=== PATIENT | female | born 1935 | race American Indian/Alaskan Native ===

== ENCOUNTER 2021-08-11 18:25 | Emergency (ER) | payer OTHER ==
[~2021-08-11] VITALS: Ht 152.4 cm; Wt 43.5 kg
[2021-08-11 19:14] LABS: PLATELET COUNT 199 K/uL (152-353)
[2021-08-11 19:27] LABS: POTASSIUM 3.7 mmol/L (3.6-5.2)
[2021-08-11 20:28] VITALS: BP 152/63; TEMP 98
[2021-08-12] MEDS ORDERED: ALENDRONATE35 MG PO (11:42)
[2021-08-12] MEDS ORDERED: AMLODIPINE BESYLATE PO (11:43)
[2021-08-12] MEDS ORDERED: CALCIUM600 M1 PO (11:44)
[2021-08-12] MEDS ORDERED: BISACODYL5 M1 PO (11:44)
[2021-08-12] MEDS ORDERED: CARV3.12 PO (11:45)
[2021-08-12] MEDS ORDERED: DOK100 MG PO (11:46)
[2021-08-12] MEDS ORDERED: FERREX 150150 MG PO (11:48)
[2021-08-12] MEDS ORDERED: EUTHYROX25 MCG PO (11:49)
[2021-08-12] MEDS ORDERED: PANTOPRAZOLE 40MG TA PO (11:50)
[2021-08-12] MEDS ORDERED: ALPR0.2566 PO (11:51)
[2021-08-12] MEDS ORDERED: FEXOFENADINE H180 M1 PO (11:52)
[2021-08-12] MEDS ORDERED: FURO40TA93 PO (11:53)
[2021-08-12] MEDS ORDERED: HYDR25CA25 PO (11:54)
[2021-08-12] MEDS ORDERED: PEG335017 GM/SCOO PO (11:55)
[2021-08-12] MEDS ORDERED: ONDANSETRON HYDR4 MG PO (11:55)
== END 2021-08-11 20:28 | disposition home health service (06) ==
LOC: ED 18:25
PROVIDERS: Hospitalist
DX: F03.91 Unspecified dementia, unspecified severity, with behavioral disturbance (principal); Z11.52 Encounter for screening for COVID-19; Z04.6 Encounter for general psychiatric examination, requested by authority
CPT/HCPCS: 36415; 80053; 85027; 87635; 93005; 99283; U0003